=== PATIENT | male | born 1950 | race Caucasian/White ===

== ENCOUNTER → 2017-02-18 | Outpatient (CLI) | payer MEDICARE, BC ==
[~2017-02-18] MED LIST: ACETAMINOPHEN PR; ACETAMINOPHEN500 M4 PO; CIPROFLOXA250 MG/5 M PO; FLOMAX0.4 M1 PO; IBUPROFEN PO; LEVAQUIN250 MG PO; NO MEDICATIONS; NORCO1 TAB 10/3 PO; PERCOCET 5/321 UDTAB DOB; VICODIN PO
[2017-02-18 09:59] LABS: CALCIUM SERUM 9.7 mg/dL (8.4-10.2); POTASSIUM 4.6 mmol/L (3.5-5.1)
== END | disposition home or self-care (01) ==
LOC: CAMB 07:50
PROVIDERS: Surgery
DX: Z01.812 Encounter for preprocedural laboratory examination (principal); K43.9 Ventral hernia without obstruction or gangrene
CPT/HCPCS: 36415; 80048

== ENCOUNTER → 2017-02-25 | Day surgery (SDC) | payer MEDICARE, BC ==
--- NOTE | ~2017-02-25 | OR ---
Unit #: [id number] #: [id number] Patient: MADIHA VILLAVICENCIO [id number] [address] [place], [place] [address] [id number] O MR#: [id number] NAME: MADIHA VILLAVICENCIO ROOM: Date of Procedure: 02/25/2017 Admission Date: 02/25/2017 Surgeon: Tushar Doll Jr., M.D. : 1950 Attending Physician: Tushar Doll Jr., M.D. Primary Care Physician: Yomi Ramires M.D. OPERATIVE REPORT INDICATIONS FOR PROCEDURE The patient is a 66-year-old white male, recently presented to the office complaining of a tender bulge in the upper abdomen, was noted to have a chronic incarcerated ventral hernia. He is brought in this time for reduction and repair of this. He has had previous surgery. He understands the procedure including the risks and consents. PREOPERATIVE DIAGNOSIS Chronic incarcerated ventral incisional hernia. POSTOPERATIVE DIAGNOSIS Chronic incarcerated ventral incisional hernia, noting approximately a 4 to 5 cm defect with incarcerated omentum within it. ANESTHESIA General with endotracheal intubation and 0.5% Marcaine with epinephrine locally. [facility] RECTAL SURGEON Dr. Guerra. PROCEDURE PERFORMED Reduction and repair of incarcerated ventral hernia using a 6 x 8 inch Ventralight mesh. DESCRIPTION OF PROCEDURE The patient was positioned in the supine position. After being anesthetized and intubated, he was prepped and draped in routine fashion for laparoscopic ventral hernia repair. A small 0.5 cm incision was made in the right lateral abdominal wall area and a 5-mm Optiview was introduced into the abdomen. The abdomen was then inflated with CO2 gas. The camera was introduced into the abdomen. There was no evidence of any injury related to introduction of the Optiview. Brief intraabdominal exploration was carried out. The patient was noted to have incarcerated omentum within a ventral hernia just to the right of the umbilicus. An 11-mm port was placed in the right lower quadrant abdominal wall area and a 5-mm port in the left upper and left lower quadrant abdominal wall areas. Using traction, the omentum was reduced from the hernia and a small portion of the hernia sac was removed using the hook cautery. After this was complete, the area was checked and it was felt that a 6 x 8 inch Ventralight mesh was indicated for good coverage of this hernia. After noting no evidence of any bleeding from the lysis of a few adhesions, a 6 Unit #: [id number] #: [id number] Patient: MADIHA VILLAVICENCIO x 8 inch Ventralight mesh was used to lefty out on the abdominal wall area for coverage. It was then tacked in 4 corners with Vicryl sutures as routine, soaked in antibiotic solution, placed intra-abdominal and brought up against the anterior abdominal wall using the Endo Close technique. After it was brought up, it was positioned and tacked in place with SecureStrap, which were absorbable tacks. After this was complete, the area was checked. There was excellent coverage of the defect with good securing using the absorbable tacks. After hemostasis was noted, the CO2 was expressed from the abdomen. The fascia in the larger port site was approximated using the neoClose technique and after expressing the CO2, the ports removed. There was no evidence of any bleeding from the port sites. The port sites were injected with 0.5% Marcaine with epinephrine locally. The sutures holding the mesh up were then lysed and the wounds were irrigated and after hemostasis was again achieved with Bovie cautery, skin edges on all the wounds were approximated with stainless-steel skin clips and skin stapling device. Sterile dressings were applied externally. Estimated blood loss less than 50 mL. The patient received less than 1000 mL of crystalloid solution during the procedure. Sponges and instrument counts were correct x3. No drains used. No complications. The patient was taken to the recovery room with stable vital signs in satisfactory condition. Dictated by... Tushar Doll Jr., M.D. JMB/dalia TD: 03/03/2017 03:56 JOB #: [id number] OPERATIVE REPORT Page 1 of 1 X Tushar Doll MD X PROCEDURE OPERATIVE NOTE
[2017-02-25 09:13] LABS: BUN/CREATININE RATIO 11.9; CALCIUM SERUM 9.4 mg/dL (8.4-10.2); CREATININE SERUM 2.1 mg/dL (0.6-1.4); GLOM FILT RATE Estimated 32.1 mL/min (>60); POTASSIUM 4.4 mmol/L (3.5-5.1)
== END | disposition home or self-care (01) ==
LOC: CSUR 08:08
PROVIDERS: Surgery
DX: K43.0 Incisional hernia with obstruction, without gangrene (principal); M19.90 Unspecified osteoarthritis, unspecified site; Z85.51 Personal history of malignant neoplasm of bladder; Z87.891 Personal history of nicotine dependence; Z90.5 Acquired absence of kidney
CPT/HCPCS: 80048; C1787; J0330; J0690; J1650; J2250; J2270; J2405; J2710; J3010

== ENCOUNTER → 2017-03-29 | Day surgery (SDC) | payer MEDICARE, BC ==
--- NOTE | ~2017-03-29 | OR ---
Unit #: [id number] #: [id number] Patient: MADIHA VILLAVICENCIO [id number] [address] [place], [place] [address] [id number] O MR#: [id number] NAME: MADIHA VILLAVICENCIO. ROOM: Date of Procedure: 03/29/2017 Admission Date: 03/29/2017 Surgeon: Ernesto Dixon M.D. : 1950 Attending Physician: Ernesto Dixon M.D. Primary Care Physician: Naseem Vargas M.D. OPERATIVE REPORT PREOPERATIVE DIAGNOSES History of bladder cancer and suspicious urine studies. POSTOPERATIVE DIAGNOSES History of bladder cancer and suspicious urine studies. PROCEDURES PERFORMED Cystoscopy with bladder biopsy, fulguration, left retrograde ureteropyelogram and interpretation of same. ANESTHESIA General with local supplementation. INDICATIONS FOR PROCEDURE This patient has had recurrent high-grade superficial bladder cancer and right nephroureterectomy. On most recent office cystoscopy, there was a large area of redness in the area of the previously resected right ureteral orifice and toward the previously fulgurated anterior right wall of the bladder. A FISH test returns positive, but in too few cells for clear significance. DESCRIPTION OF PROCEDURE The patient was given satisfactory general anesthesia and preoperative antibiotics. In the dorsal lithotomy position, routine prep and drape were performed. The 21-Angolan rigid cystoscope was introduced with a 30-degree lens and video noting normal anterior urethra, mild BPH, and the bladder with clear urine which was drained. There is moderate trabeculation. The entire left side of the bladder appears healthy including the ureteral orifice. On the right, near the area of scar was a small focus of suspicion and right anterolateral was the most suspicious area. This was sampled twice with cold cup biopsy forceps. The 24-Angolan resectoscope was then placed and the rollerball used at various settings to cauterize mucosal edges and take a wide margin to ablate essentially all prominent redness. After complete hemostasis with clear urine throughout, the bladder was irrigated. All material was washed out. A Pollack catheter was placed up into the left ureteral orifice and a half strength retrograde was performed, which showed normal. It was performed with findings as noted. The ureter and upper collecting system were easily filled with just over 5 mL showing delicate calices. No narrowing, obstruction, or filling defects. This was allowed to drain and it did so promptly. The filling Unit #: [id number] #: [id number] Patient: MADIHA VILLAVICENCIO was repeated once again with prompt drainage and no new findings. Normal retrograde study. The bladder was again inspected and slight additional cautery performed, then it was drained and the resectoscope removed. A Uro-jet was applied. The patient is to follow up in 1 week for pathology results. Dictated by... Melvina Mercer/dalia TD: 03/30/2017 05:51 JOB #: [id number] OPERATIVE REPORT Page 1 of 1 X Ernesto Dixon MD X PROCEDURE OPERATIVE NOTE
== END | disposition home or self-care (01) ==
LOC: CSUR 12:18
DX: D09.0 Carcinoma in situ of bladder (principal); Z85.51 Personal history of malignant neoplasm of bladder; Z90.5 Acquired absence of kidney; Z90.6 Acquired absence of other parts of urinary tract; N40.0 Benign prostatic hyperplasia without lower urinary tract symptoms
CPT/HCPCS: 88305; J0690; J2250; J2405; J3010

== ENCOUNTER → 2017-07-16 | Day surgery (SDC) | payer MEDICARE, BC ==
--- NOTE | ~2017-07-16 | OR ---
Unit #: [id number] #: [id number] Patient: MADIHA VILLAVICENCIO [id number] [address] [address] [id number] O MR#: [id number] NAME: MADIHA VILLAVICENCIO. ROOM: Date of Procedure: 07/16/2017 Admission Date: 07/16/2017 Surgeon: Ernesto Dixon M.D. : 1950 Attending Physician: Ernesto Dixon M.D. Primary Care Physician: Naseem Vargas M.D. 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 PROCEDURES PERFORMED Cystoscopy with bladder biopsy and fulguration, Dahl catheter placement. ANESTHESIA General. INDICATIONS FOR PROCEDURE This 67-year-old man, who has had recurrent bladder cancer high-grade, status post right nephroureterectomy, had suspicious redness at the right ureteral orifice and anterior wall with positive FISH and underwent in March, bladder biopsy with carcinoma in situ Ta and a normal left retrograde. BCG has been continued. He has developed severe urinary frequency. Operative cystoscopy and biopsies were recommended. He has been resistant to suggestions of cystectomy, which may be more clearly indicated at this time. DESCRIPTION OF PROCEDURE The patient was given satisfactory general anesthesia and positioned in dorsal lithotomy. The genitalia were prepped and draped. The 21-[place] rigid cystoscope was introduced with a 30-degree lens and video. The bladder was drained of a residual of over 200 mL. Immediate returns were bloody. There was no clear scope trauma, but when the bladder was examined, there was bleeding from the right wall. There was a superficial layer of clotting obscuring visibility and it was remarkably difficult to keep it clear. The remainder of the left side of the bladder and the left ureteral orifice again as before appeared normal and healthy. After an extended period of irrigating and searching for targets of suspicious mucosa, there was none. Random biopsies of the area of redness were taken with a cold cup biopsy forceps x3. A 26-[place] resectoscope with continuous flow was then used with a 3 mm rollerball to cauterize this extensive area now with some denuded muscle and potentially very thinned areas. With his elevated residual and potential for bleeding, the bladder was drained with a 20-[place] 2-way Dahl catheter. Unit #: [id number] #: [id number] Patient: MADIHA VILLAVICENCIO PLAN We will discharge home with a catheter today. Start Flomax. Plan a voiding trial next week and await pathology results. Dictated by... Melvina Mercer/dalia TD: 07/16/2017 16:20 JOB #: [id number] CC: Naseem Vargas M.D. OPERATIVE REPORT Page 1 of 1 X Ernesto Dixon MD X PROCEDURE OPERATIVE NOTE
== END | disposition home or self-care (01) ==
LOC: CSUR 06:22
DX: N30.91 Cystitis, unspecified with hematuria (principal); I10 Essential (primary) hypertension; Z79.899 Other long term (current) drug therapy; Z90.5 Acquired absence of kidney; Z98.890 Other specified postprocedural states
CPT/HCPCS: 88305; J0690; J2250; J2405; J3010